=== PATIENT | female | born 1950 | race Caucasian/White ===

== ENCOUNTER 2018-04-20 19:34 | Emergency (ER) | payer MEDICARE, BC ==
[2018-04-20 19:45] VITALS: RESP 18; TEMP 97.2
[2018-04-20] MEDS ORDERED: CEFTRIAXONE 1 GM PDS IM ONE (20:04)
[2018-04-20] MEDS ORDERED: CEFTRIAXONE 1 GM PDS ONE (20:07)
[2018-04-20] MEDS ORDERED: LIDOCAINE HCL 1% MPF 30 SOL ONE (20:07)
[2018-04-20 20:37] VITALS: BP 126/82; PULSE 91; O2SAT 95
== END 2018-04-20 20:27 | disposition home or self-care (01) | DRG 603 ==
LOC: ED 19:34
DX: L03.115 Cellulitis of right lower limb (principal)
CPT/HCPCS: 96372; 99282; 99283; J0696; J2001